=== PATIENT | male | born 1995 | race Two or more races ===

== ENCOUNTER 2021-10-24 16:08 | Emergency (ER) | payer MEDICAID ==
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
--- NOTE | 2021-10-24 17:43 | NUR ---
DEANDRA AT [facility] PROVIDING WOUND CARE
[2021-10-24] MEDS ORDERED: IBUP-1955 PO (18:12)
[2021-10-24] MEDS ORDERED: CEPH500T PO (18:12)
[2021-10-24] MEDS ORDERED: LIDOCAINE /MPF 1% VIAL 5 ML VIAL ONE (19:04)
--- NOTE | 2021-10-24 19:11 | NUR ---
REPORT GIVEN TO DENISSE FOR [facility]
--- NOTE | 2021-10-24 19:35 | NUR ---
DISCHARGE INSTRUCTIONS GIVEN TO PT. LEFT IN STABLE CONDITION.
[2021-10-24 19:44] VITALS: BP 138/82
== END 2021-10-24 19:35 | disposition home or self-care (01) ==
LOC: ER 18:20
DX: S61.215A Laceration without foreign body of left ring finger without damage to nail, initial encounter (principal); W26.0XXA Contact with knife, initial encounter; Y93.89 Activity, other specified; Y92.89 Other specified places as the place of occurrence of the external cause; Y99.8 Other external cause status
CPT/HCPCS: 12001; 99283; J3490